=== PATIENT | female | born 1940 | race Caucasian/White ===

== ENCOUNTER → 2016-07-13 | Outpatient (CLI) | payer OTHER ==
[~2016-07-13] MED LIST: ASPIR 8181 M1 PO; BYSTOLIC2.5 MG PO; LEVOTHYROXIN0.088 MG PO; PROTONIX40 M1 PO; VESICARE 5 MG TA5 M1 PO
[2016-07-13 11:10] VITALS: BP 137/70
[2016-07-13 12:05] VITALS: BP 141/63
== END ==
LOC: OPONC 06:21
DX: E83.119 Hemochromatosis, unspecified (principal)
CPT/HCPCS: 95100

== ENCOUNTER → 2016-10-05 | Outpatient (CLI) | payer OTHER ==
[2016-10-05 10:55] VITALS: BP 144/72
[2016-10-05 11:36] LABS: HEMOGLOBIN 7.2 gm/dL (12.0-15.0)
[2016-10-05 12:00] VITALS: BP 129/63
[2016-10-05 12:01] LABS: HEMATOCRIT 42.8 % (37.0-47.0)
[2016-10-05 12:06] LABS: HEMOGLOBIN 14.9 gm/dL (12.0-15.0)
== END ==
LOC: OPONC 01:33
PROVIDERS: Internal Medicine
DX: E83.119 Hemochromatosis, unspecified (principal)
CPT/HCPCS: 95100

== ENCOUNTER → 2017-01-04 | Outpatient (CLI) | payer OTHER ==
[2017-01-04 11:09] LABS: HEMATOCRIT 45.6 % (37.0-47.0); HEMOGLOBIN 15.5 gm/dL (12.0-15.0)
[2017-01-04 11:25] VITALS: BP 148/77
[2017-01-04 12:05] VITALS: BP 149/75
== END ==
LOC: OPONC 00:38
PROVIDERS: Internal Medicine
DX: E83.111 Hemochromatosis due to repeated red blood cell transfusions (principal)
CPT/HCPCS: 95100

== ENCOUNTER → 2017-07-12 | Outpatient (CLI) | payer OTHER, BC ==
[~2017-07-12] MED LIST changes: +BENADRYL25 MG PO; +BENTYL 10 MG CA10 M1 PO; +CALCIUM 600 +1 EAC1 PO; +COLESTIPOL HCL1 G1 PO; +CRANBERRY300 MG PO; +ELESTRIN26 GM TOP; +FISH OIL 1,001000 M2 PO; +FLONASE 0.05%50 MCG NASAL; +GENTEAL TEARS 015 M1 OPHTHALMIC; +METRONIDAZOLE CREAM; +PREMARIN30 GM TOP; +PROBIOTIC1 EAC1 PO; +URIBEL CAPSULE1 EACH PO; +VITAMIN D2000 UNI1 PO; +ZADITOR5 M1 OPHTHALMIC; +[UNRECOGNIZED DRUG - OTHER] PO
[2017-07-12 09:00] VITALS: BP 142/67
[2017-07-12 09:35] VITALS: BP 155/65
== END ==
LOC: OPONC 00:41
DX: E83.118 Other hemochromatosis (principal); D58.2 Other hemoglobinopathies
CPT/HCPCS: 95100

== ENCOUNTER → 2017-09-26 | Outpatient (CLI) | payer OTHER, BC ==
[2017-09-26 11:00] VITALS: BP 123/63
[2017-09-26 11:37] LABS: HEMOGLOBIN 15.2 gm/dL (12.0-15.0)
[2017-09-26 12:25] VITALS: BP 135/54
== END ==
LOC: OPONC 09:36
PROVIDERS: Internal Medicine Gastroenterology
DX: E83.110 Hereditary hemochromatosis (principal); I42.9 Cardiomyopathy, unspecified; I34.0 Nonrheumatic mitral (valve) insufficiency
CPT/HCPCS: 95100

== ENCOUNTER → 2017-11-15 | Outpatient (CLI) | payer OTHER, BC ==
[~2017-11-15] MED LIST changes: +BYSTOLIC 5 MG5 M1 PO; -BYSTOLIC2.5 MG PO; +TESSALON PERLE100 MG PO; +VESICARE 5 MG TA5 MG PO
[2017-11-15 11:14] LABS: HEMATOCRIT 44.9 % (37.0-47.0); HEMOGLOBIN 15.5 gm/dL (12.0-15.0)
[2017-11-15 11:20] VITALS: BP 127/55
[2017-11-15 11:50] VITALS: BP 128/61
== END ==
LOC: OPONC 02:54
PROVIDERS: Internal Medicine Gastroenterology
DX: E83.110 Hereditary hemochromatosis (principal); I42.9 Cardiomyopathy, unspecified; I34.0 Nonrheumatic mitral (valve) insufficiency
CPT/HCPCS: 95100

== ENCOUNTER → 2018-01-03 | Outpatient (CLI) | payer OTHER, BC ==
[2018-01-03 11:29] LABS: HEMATOCRIT 44.4 % (37.0-47.0); HEMOGLOBIN 15.4 gm/dL (12.0-15.0)
[2018-01-03 12:23] VITALS: BP 143/88
== END ==
LOC: OPONC 07:50
PROVIDERS: Internal Medicine Gastroenterology
DX: E83.110 Hereditary hemochromatosis (principal); I42.9 Cardiomyopathy, unspecified; I34.0 Nonrheumatic mitral (valve) insufficiency
CPT/HCPCS: 95100

== ENCOUNTER → 2018-02-21 | Outpatient (CLI) | payer OTHER, BC ==
[2018-02-21 11:00] VITALS: BP 145/60
[2018-02-21 11:34] LABS: HEMATOCRIT 43.1 % (37.0-47.0); HEMOGLOBIN 15.1 gm/dL (12.0-15.0)
[2018-02-21 12:24] VITALS: BP 148/73
== END ==
LOC: OPONC 08:00
PROVIDERS: Internal Medicine Gastroenterology
DX: E83.110 Hereditary hemochromatosis (principal); I42.9 Cardiomyopathy, unspecified; I34.0 Nonrheumatic mitral (valve) insufficiency
CPT/HCPCS: 95100

== ENCOUNTER → 2018-04-11 | Outpatient (CLI) | payer OTHER, BC ==
[2018-04-11 11:05] VITALS: BP 145/66
[2018-04-11 11:47] LABS: HEMATOCRIT 42.4 % (37.0-47.0); HEMOGLOBIN 14.8 gm/dL (12.0-15.0)
[2018-04-11 13:05] VITALS: BP 130/55
--- NOTE | 2018-04-11 13:10 | NUR ---
HERE FOR Q7WEEK THERAPEUTIC PHLEBOTOMY FOR HEMACHROMATOSIS. HGB 14.8, HCT 42.4 WHEN CHECKED TODAY SO ABLE TO PERFORM PHLEBOTOMY. VASCULAR ACCESS NURSE ASSISTED, BLOOD WITHDRAWN USING SYRINGES FROM #20 GAUGE IV CATHETER PLACED IN L FOREARM. PT TOLERATED WELL. NO BLEEDING OR BRUISING NOTED FROM SITE POST PHLEBOTOMY. DRANK 2 JUICES PRIOR TO DISMISSAL. VSS POST. THIS WAS 6TH OF 7 PHLEBOTOMIES PERFORMED. PT SCHEDULED TO RETURN 05/20. DISMISSED IN STABLE CONDITION.
== END ==
LOC: OPONC 04-10 11:48
PROVIDERS: Internal Medicine Gastroenterology
DX: E83.110 Hereditary hemochromatosis (principal); I42.9 Cardiomyopathy, unspecified; I34.0 Nonrheumatic mitral (valve) insufficiency
CPT/HCPCS: 95100

== ENCOUNTER → 2018-05-30 | Outpatient (CLI) | payer OTHER, BC ==
[2018-05-30 11:25] LABS: HEMATOCRIT 43.5 % (37.0-47.0)
[2018-05-30 11:35] VITALS: BP 143/67
[2018-05-30 12:25] VITALS: BP 138/62
--- NOTE | 2018-05-30 12:40 | NUR ---
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 PT REPORTS DOING WELL RECENTLY, NO CONCERNS NOTED. H&H CHECKED PRIOR, HGB 15.0 SO 500ML BLOOD REMOVED ORDERED. PT TOLERATED WELL, VSS POST. DRANK JUICE POST AND REMINDED TO DRINK PLENTY OF FLUIDS OVER THE NEXT 1-2 DAYS. PT ALSO REMINDED TO F/U WITH HER PCP AND HAVE THE LABS DRAWN THAT DR. CARSON WOULD LIKE DONE AFTER COMPLETING THIS ROUND OF PHLEBOTOMIES. PT VERBALIZES UNDERSTANDING. DISMISSED IN STABLE CONDITION WITH HER SON. NO FURTHER APPTS SCHEDULED PENDING NEW ORDERS FROM DR. CARSON.
== END ==
LOC: OPONC 01:36
PROVIDERS: Internal Medicine Gastroenterology
DX: E83.110 Hereditary hemochromatosis (principal); I42.9 Cardiomyopathy, unspecified; I34.0 Nonrheumatic mitral (valve) insufficiency
CPT/HCPCS: 95100

== ENCOUNTER → 2019-02-20 | Outpatient (CLI) | payer OTHER, BC ==
[2019-02-20 10:30] VITALS: BP 143/65
[2019-02-20 10:33] LABS: HEMATOCRIT 43.5 % (37.0-47.0); HEMOGLOBIN 14.6 gm/dL (12.0-15.0)
[2019-02-20 11:10] VITALS: BP 145/64
[2019-02-20 11:18] LABS: ABSOLUTE NEUTROPHILS 3.4 thou/uL (1.4-8.2); BASOPHILS 0.8 % (0.0-2.0); EOSINOPHILS 1.3 % (0.0-3.0); HEMOGLOBIN 14.4 gm/dL (12.0-15.0); LYMPHOCYTES 29.8 % (24.0-44.0); MCH 32.3 pg (26.0-34.0); MCHC 33.4 g/dL (28.0-37.0); MCV 96.5 fL (80.0-100.0); MONOCYTES 7.9 % (1.0-8.0); PLATELET COUNT 190 thou/uL (150-400); POLYS 60.2 % (36.0-66.0); RBC 4.46 mil/uL (4.20-5.00); RDW 12.4 % (10.5-14.5); WBC 5.6 thou/uL (4.0-11.0)
--- NOTE | 2019-02-20 11:25 | NUR ---
PT HERE FOR THERAPEUTIC PHLEBOTOMY AFTER A SEVERAL MONTH BREAK. PT'S PCP IS NOW THE ORDERING PHYSICIAN. LABS DRAWN, HGB 14.6 SO OK FOR PHLEBOTOMY. IV THERAPY NURSE, MELANIA YANG, ASSISTED WITH PROCEDURE PT IS A VERY DIFFICULT STICK FOR PHLEBOTOMIES. #20 IV CATH PLACED LEFT FOREARM AND BLOOD DRAWN OFF WITH SYRINGE, 475ML TOTAL. PT TOLERATED WITHOUT INCIDENT. NO BRUISING AT IV SITE. VSS. REPORTS FEELING WELL. DRANK 2 JUICES PRIOR TO DISMISSING IN STABLE CONDITION. SCHEDULED TO RETURN IN 3 MONTHS.
== END ==
LOC: OPONC 11:20
PROVIDERS: Emergency Medicine
DX: E83.119 Hemochromatosis, unspecified (principal)
CPT/HCPCS: 95100

== ENCOUNTER → 2019-05-22 | Outpatient (CLI) | payer OTHER, BC ==
[2019-05-22 10:15] VITALS: BP 100/78
[2019-05-22 10:25] LABS: HEMATOCRIT 45.7 % (37.0-47.0); HEMOGLOBIN 15.2 gm/dL (12.0-15.0)
[2019-05-22 12:00] VITALS: BP 122/80
[2019-05-22 12:23] VITALS: BP 122/80
--- NOTE | 2019-05-22 12:31 | NUR ---
PT IN FOR THERAPEUTIC PHLEBOTOMY. 20G PLACED IN LT FOREARM AND LABS FOR H&H OBTAINED AND SENT TO THE STAT LAB. HGB 15.2 AND PROCEDURE COMPLETED. 500MLS OF BLOOD WITHDRAWN AND DISPOSED. PT ZECHARIAH WELL. VSS. PT HOME WITH SISTER TO ASSIST.
== END ==
LOC: OPONC 12:00
PROVIDERS: Emergency Medicine
DX: E83.110 Hereditary hemochromatosis (principal); I42.9 Cardiomyopathy, unspecified; I34.0 Nonrheumatic mitral (valve) insufficiency
CPT/HCPCS: 95100

== ENCOUNTER → 2019-11-07 | Outpatient (CLI) | payer OTHER, BC ==
[2019-11-07 10:20] VITALS: BP 176/90
[2019-11-07 11:06] LABS: HEMATOCRIT 44.3 % (37.0-47.0); HEMOGLOBIN 15.2 gm/dL (12.0-15.0); MCH 32.7 pg (26.0-34.0); MCHC 34.4 g/dL (28.0-37.0); MCV 94.9 fL (80.0-100.0); RBC 4.66 mil/uL (4.20-5.00); RDW 12.9 % (10.5-14.5); WBC 5.8 thou/uL (4.0-11.0)
[2019-11-07 11:55] VITALS: BP 140/76
--- NOTE | 2019-11-07 13:28 | NUR ---
IN FOR THERAPEUTIC PHLEBOTOMY TODAY. CBC AND FERRITIN DONE. HGB 15.2/HCT 44.3. IV TEAM PLACED IV AND 500 ML BLOOD DRAWN OFF MANUALLY. TOLERATED WELL. DRANK SOME ORANGE JUICE AND OBSERVED FOR 20 MINUTES. POST BP 140/76. DISMISSED IN STABLE CONDITION. TO RETURN IN 3 MONTHS ON Feb.05 FOR NEXT PHLEBOTOMY.
== END ==
LOC: OPONC 10-24 08:32
PROVIDERS: ATTEND Emergency Medicine
DX: E83.119 Hemochromatosis, unspecified (principal)
CPT/HCPCS: 95100

== ENCOUNTER → 2020-02-06 | Outpatient (CLI) | payer OTHER, BC ==
[2020-02-06 11:10] VITALS: BP 147/58
[2020-02-06 11:18] LABS: HEMATOCRIT 43.9 % (37.0-47.0); HEMOGLOBIN 14.9 gm/dL (12.0-15.0); MCH 32.4 pg (26.0-34.0); MCV 95.3 fL (80.0-100.0); RBC 4.6 mil/uL (4.20-5.00); RDW 12.6 % (10.5-14.5); WBC 5.9 thou/uL (4.0-11.0)
[2020-02-06 12:40] VITALS: BP 147/60
== END ==
LOC: OPONC 10:55
PROVIDERS: ATTEND Emergency Medicine
DX: E83.110 Hereditary hemochromatosis (principal)
CPT/HCPCS: 95100

== ENCOUNTER → 2020-06-24 | Outpatient (CLI) | payer OTHER, BC ==
[2020-06-24 11:15] VITALS: BP 141/53
[2020-06-24 11:41] LABS: HEMOGLOBIN 14.6 gm/dL (12.0-15.0); MCH 31.7 pg (26.0-34.0); MCV 93.4 fL (80.0-100.0); RBC 4.61 mil/uL (4.20-5.00); RDW 13.3 % (10.5-14.5); WBC 5.8 thou/uL (4.0-11.0)
[2020-06-24 14:05] VITALS: BP 107/68
--- NOTE | 2020-06-24 14:10 | NUR ---
PT HERE FOR [id number] THERAPEUTIC PHLEBOTOMY A BIT LATE SHE CANCELED PREVIOUS APPT D/T DIVERTICULITIS FLARE. STATES SHE HAS RECOVERED FROM THAT. OTHER THAN THAT AND CHRONIC RT KNEE PAIN PT STATES SHE IS DOING WELL. PRE TREATMENT LABS DRAWN NOTICING FERRITIN OF 56, THE LOWEST WE HAVE HAD ON PT. NO PARAMETERS IN PLACE FOR FERRITIN BUT MET CRITERIA FOR PHLEBOTOMY BASED ON HGB SO ' OFFICE CALLED TO SEE IF WE SHOULD PROCEED. A BIT OF DELAY INVOLVED WITH AWAITING RETURN PHONE CALL BUT DID GET OK TO PROCEED NOW AND IN THE FUTURE LONG THE FERRITIN IS >50. VASCULAR ACCESS NURSE CALLED TO ASSIST PT HAS POOR VENOUS ACCESS. SHE PLACED PERIPHERAL LINE IN LEFT ARM AND BLOOD WAS PULLED BY SYRINGE. BLOOD SEEMS THICK, PULLING WAS QUITE SLOW TODAY BUT PT TOLERATED WELL. NO C/O ADVERSE AFFECTS AND VSS POST. DID ENCOURAGE LOTS OF FLUID INTAKE FOR THE NEXT 24 HOURS. PT DRANK A CAN OF SODA PRIOR TO DISMISSAL. GOOD HEMOSTATIS FROM IV CATHETER REMOVAL SITE, COBAN PLACED FOR PRESSURE. PT DISMISSED IN STABLE CONDITION. SCHEDULED TO RETURN IN 3 MONTHS.
== END ==
LOC: OPONC 10:55
PROVIDERS: ATTEND Emergency Medicine
DX: E83.110 Hereditary hemochromatosis (principal)
CPT/HCPCS: 95100

== ENCOUNTER → 2020-09-16 | Outpatient (CLI) | payer OTHER, BC ==
[~2020-09-16] MED LIST changes: +NEXIUM 40 MG CA40 M1 PO
[2020-09-16 11:45] VITALS: BP 151/70
[2020-09-16 11:45] LABS: HEMATOCRIT 42.4 % (37.0-47.0); HEMOGLOBIN 14.4 gm/dL (12.0-15.0); MCH 31.4 pg (26.0-34.0); MCV 92.5 fL (80.0-100.0); RBC 4.58 mil/uL (4.20-5.00); RDW 13.2 % (10.5-14.5); WBC 5.7 thou/uL (4.0-11.0)
--- NOTE | 2020-09-16 12:30 | NUR ---
HERE FOR Q3M THERAPEUTIC PHLEBOTOMY. PRE-LABS DRAWN NOTING A FERRITIN OF 37 SO PHLEBOTOMY HELD PER PARAMETERS PROVIDED. WILL NOTIFY DR. CLAYTON. PT IS SCHEDULED TO SEE HIM IN OCTOBER. WILL AWAIT SCHEDULING ANY FURTHER PHLEBOTOMIES UNTIL DR. CLAYTON SEES PT, REVIEWS LABS AND SHARES HIS PLAN. PT VERBALIZES UNDERSTANDING. DISMISSED IN STABLE CONDITION.
== END ==
LOC: OPONC 11:45
PROVIDERS: ATTEND Emergency Medicine
DX: E83.110 Hereditary hemochromatosis (principal)
CPT/HCPCS: 91016